=== PATIENT | female | born 2005 | race Hispanic/Latino ===

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

== ENCOUNTER 2023-01-16 17:15 | Emergency (ER) | payer OTHER ==
[2023-01-16] MEDS ORDERED: Ibuprofen 200 MG TAB ONE (17:42)
== END 2023-01-16 19:07 | disposition home or self-care (01) ==
LOC: CSHERS 17:15
DX: B34.9 Viral infection, unspecified (principal)
CPT/HCPCS: 99283